=== PATIENT | female | born 1965 ===

== ENCOUNTER → 2017-08-03 | Outpatient (CLI) | payer BC | END | disposition home or self-care (01) | LOC: C.PAPS 09:31 | PROVIDERS: ATTEND Physician Assistant | DX: Z01.411 Encounter for gynecological examination (general) (routine) with abnormal findings (principal); N95.2 Postmenopausal atrophic vaginitis ==

== ENCOUNTER → 2017-10-19 | Outpatient (CLI) | payer BC ==
--- NOTE | 2017-10-20 15:14 | MAMMOGRAPHY REPORT ---
BILATERAL DIGITAL SCREENING MAMMOGRAM TOMOSYNTHESIS WITH CAD: 10/19/2017 CLINICAL HISTORY: Routine screening. Patient has no complaints. TECHNIQUE: Breast tomosynthesis in addition to standard 2D mammography was performed. Current study was also evaluated with a Computer Aided Detection (CAD) system. COMPARISON: Comparison is made to exams dated: 06/18/2015 ultrasound, 07/06/2016 mammogram - [facility], 03/29/2014 mammogram, 03/08/2013 mammogram, and 06/19/2012 mammogram - [facility]. BREAST COMPOSITION: There are scattered areas of fibroglandular density in both breasts. FINDINGS: No suspicious masses, calcifications, or areas of architectural distortion are noted in ei ther breast. There has been no significant interval change compared to prior exams. Small circumscri bed benign-appearing masses are again noted bilaterally, which are considered benign given the multip licity and bilaterality and likely represent small cysts. IMPRESSION: ACR BI-RADS CATEGORY 2: BENIGN There is no mammographic evidence of malignancy. A 1 year screening mammogram is recommended. The pa tient will receive written notification of the results. Approximately 10% of breast cancers are not detected with mammography. A negative mammographic report should not delay biopsy if a clinically suggestive mass is present. Svetlana Lopez M.D. ah/:10/19/2017 16:48:55 [employer]: Angelica GUARDADO(Gamaliel)(M), [facility] letter sent: Normal 1/2 BI-RADS Code: ACR BI-RADS Category 2: Benign
== END | disposition home or self-care (01) ==
LOC: C.MAMM 16:33
PROVIDERS: ATTEND Physician Assistant
DX: Z12.31 Encounter for screening mammogram for malignant neoplasm of breast (principal)

== ENCOUNTER 2019-08-31 11:11 | Inpatient (IN) ==
--- NOTE | 2019-08-09 22:35 | PAT Medication Instructions ---
Medication Instructions Date of Service August 09, 2019 Home Medications [place]-3 Fish Oil 1 cap PO QAM cetirizine 10 mg PO QAM escitalopram oxalate [Lexapro] 10 mg PO QAM hydrochlorothiazide 25 mg PO QAM tvtem-reitp-8-wxu-lfq-swmwct [krill oil] 1 cap PO QAM pantoprazole 40 mg PO QAM potassium chloride 10 meq PO Q2D STOP taking 2 weeks before surgery If surgery is within 2 weeks, stop taking as soon as possible. [place]-3 Fish Oil 1 cap PO QAM vxwkn-jrqoy-0-rcq-jil-ilwrsi [krill oil] 1 cap PO QAM DO NOT take the morning of surgery cetirizine 10 mg PO QAM hydrochlorothiazide 25 mg PO QAM potassium chloride 10 meq PO Q2D Take morning of surgery With a small sip of water, OTHERWISE NOTHING TO EAT OR DRINK AFTER MIDNIGHT: escitalopram oxalate [Lexapro] 10 mg PO QAM pantoprazole 40 mg PO QAM Other Notes If you have any questions please call us at [phone] or [phone] or [phone] or [phone]
--- NOTE | 2019-08-10 11:10 | Anesthesiology Consultation ---
Date of Service August 10, 2019 Assessment & Plan (1) Encounter for pre-operative examination: Chart Review Chart Review: Acceptable Risk for Surgery (pending pre op labs) and Patient seen in Pre Admission Testing Teaching & Discussion Instructed NPO after midnight before surgery, except medications with 15 cc of water. Medication instructions provided according to the PAT guidelines. History Surgery Operation Date: 08/31/19 07:45 Proposed Procedures p L5-S1 Revision Decompression and Fusion, Spinal Cord Monitoring - Luis Livingston DO Height/Weight Height: 5 ft 5 in Weight: 76.6 kg Allergies Allergy/AdvReac Type Severity Reaction Status Date / Time No Known Allergies Allergy Verified 07/24/19 13:19 Medications Home Medications Medication Instructions Recorded Confirmed Last Taken [place]-3 Fish Oil 1 cap PO QAM 04/12/19 07/24/19 04/13/19 05:15 cetirizine 10 mg PO QAM 04/12/19 07/24/19 04/23/19 05:15 escitalopram oxalate [Lexapro] 10 mg PO QAM 07/24/19 07/24/19 Unknown hydrochlorothiazide 25 mg PO QAM 07/24/19 07/24/19 Unknown tdntx-aiimy-4-gle-rcp-cznfhj 1 cap PO QAM 07/24/19 07/24/19 Unknown [krill oil] pantoprazole 40 mg PO QAM 07/24/19 07/24/19 Unknown potassium chloride 10 meq PO Q2D 07/24/19 07/24/19 Unknown Past Medical History Medical History Back pain LLE radiculopathy GERD (gastroesophageal reflux disease) Hyperlipidemia monitoring-NO MEDS CURRENTLY Hypertension Exercise / Class Metabolic Activity II 4-5 Yardwork/Stairs/Walk up hill Past Family History Family History (Updated 07/24/19 @ 13:25 by Pippa Escobar RN) Father Family history of diabetes mellitus FHx: lung cancer Sister Family history of diabetes mellitus Past Surgical History Surgical History History of bilateral tubal ligation History of cholecystectomy History of colonoscopy History of esophagogastroduodenoscopy (EGD) Previous back surgery 04/2019 [facility] Past Anesthesia History No Hx of Anesthesia Complications and No Family Hx of Anesthesia Complications History of PONV No Hx of PONV and No Hx of Motion Sickness Social History Smoking Status: Never smoker Do You Dip or Chew Tobacco: No Hx Alcohol Use: No Alcohol type: hard liquor alcohol intake frequency: holidays/special occasions only Hx Substance Use: No substance use type: does not use Review of Systems Pt denies any recent chest pain, shortness of breath, palpitations, cough, fever or URI. Physical Exam Vital Signs BP: 115/56 P: 60bpm SPO2: 96% RA T: 98.0 F R: 16 ENMT Mouth: no dental restorations, no chipped teeth and no loose teeth Thyromental Distance: > or= 3.5 Finger Breadths (.5) Mallampati Class: II Neck normal visual inspection; neck extension not limited Respiratory normal respiratory effort Auscultation: lungs clear to auscultation bilaterally Cardiovascular Rate/Rhythm: regular rate and regular rhythm Heart Sounds: no murmur Vessels: no carotid bruit Extremities: no edema Testing Electrocardiogram Date: 09/04/18 Findings: + NSR @ (68) Chest X-Ray Date: 09/04/18 Findings: + NAD Stress Test Date: 11/16/16 Type: exercise Exercise ECHO "normal." No inducible ischemia. Exercise EKG negative for ischemia. 98% MPHR. 8.3 METS. LVEF 66%. No significant valvular disease.
[2019-08-10 12:55] LABS: Basophils # (auto) 0.01 K/uL (0-0.2); Basophils % (auto) 0.2 %; Eosinophils # (auto) 0.17 K/uL (0-0.5); Eosinophils % (auto) 3.4 %; Hematocrit (blood only) 41.2 % (37-47); Immature Granulocytes # (auto) 0.01 K/uL (0.00-0.02); Immature Granulocytes % (auto) 0.2 %; Lymphocytes # (auto) 1.61 K/uL (1.2-3.4); Lymphocytes % (auto) 31.9 %; Mean Corpuscular Hemoglobin 29.2 pg (25-34); Mean Platelet Volume 11.2 fL (7.4-10.4); Monocytes % (auto) 9.9 %; Neutrophils # (auto) 2.74 K/uL (1.4-6.5); Neutrophils % (auto) 54.4 %; Platelet Count 201 K/uL (130-400); RDW Coefficient of Variation 13.4 % (11.5-14.5); RDW Standard Deviation 42.4 fL (36.4-46.3); Red Blood Count 4.79 M/uL (4.2-5.4); White Blood Count 5.04 K/uL (4.8-10.8)
[2019-08-10 12:59] LABS: Appearance Urine Clear (Clear); Bacteria Urine Automated Negative (Negative); Bilirubin Urine Negative (Negative); Blood Urine Negative (Negative); Cast Urine Automated 0 /lpf (0-5); Color Urine Yellow; Epithelial Cell Urine Auto 20-30 /lpf (0-5); Glucose Urine UA Negative (Negative); Ketones Urine Negative (Negative); Leukocyte Esterase Urine Trace (Negative); Nitrite Urine Negative (Negative); Protein Urine Negative (Negative); RBC Urine Automated 0-4 /hpf (0-4); Specific Gravity Urine 1.017 (1.000-1.030); Urobilinogen Urine Negative (Negative); pH Urine 6.5 (4.5-7.5)
[2019-08-10 13:03] LABS: BUN Creatinine Ratio 11.8 (10-20); Calcium 9.8 mg/dl (8.5-10.1); Creatinine Clr Calc Pharmacy 79.4 ml/min; Est GFR (African American) 94.1; Est GFR (Non-African American) 81.2; Potassium 3.3 mmol/L (3.5-5.1)
[2019-08-10 13:07] LABS: Partial Thromboplastin Ratio 0.9; Partial Thromboplastin Time 25.3 Seconds (21.0-31.0); Prothrombin Time 9.8 Seconds (9.0-12.0)
[~2019-08-31 11:11] MED LIST: ACETAMINOPHEN 500 MG TAB PO SCH; CEFAZOLIN 1000MG 1,000 MG/7.5 ML SYR IV SCH; CeleBREX 200 MG CAP PO SCH; GABAPENTIN 600 MG DOSE PO SCH; LR 15ML/HR IV SCH
[2019-08-31] MEDS ORDERED: DEXAMETHASONE SOD INJ 4 MG/ML VIAL ONE (12:29)
[2019-08-31] MEDS ORDERED: GLYCOPYRROLATE 0.2 MG/ML VIAL ONE (12:29)
[2019-08-31] MEDS ORDERED: ONDANSETRON INJ 2 MG/ML 2 ML VIAL ONE (12:29)
[2019-08-31] MEDS ORDERED: ROCURONIUM BROMIDE 10 MG/ML 5 ML VIAL ONE (12:29)
[2019-08-31] MEDS ORDERED: PROPOFOL IV EMULSION 10 MG/ML 20 ML VIAL IV ONE (12:29)
[2019-08-31] MEDS ORDERED: fentaNYL citrate 100 MCG/2 ML VIAL ONE ×2 (12:29)
[2019-08-31] MEDS ORDERED: MIDAZOLAM HCL 1 MG/ML 2ML VIAL ONE (12:29)
[2019-08-31] MEDS ORDERED: NEOSTIGMINE METHYLSULFATE 1 MG/ML 10ML VIAL ONE (12:29)
--- NOTE | 2019-08-31 12:38 | History & Physical Bridge Note ---
Date of Service August 31, 2019 History & Physical Bridge Note I have examined the patient, reviewed the History & Physical and in the interval since the performance of the History & Physical I have noted the following changes of clinical significance: no changes noted
--- NOTE | 2019-08-31 12:39 | History & Physical Report ---
Date of Service August 31, 2019 Assessment & Plan (1) Recurrent herniation of lumbar disc: L5-S1 revision decompression fusion Present on Admission?: Yes History of Present Illness Chief Complaint: Back and leg pain Primary Care Provider: Nitza Vale PA-C This is a 54-year-old female known to me that presents with return of back and leg pain. Failing course of nonoperative care for is here for surgical intervention. Allergies Allergy/AdvReac Type Severity Reaction Status Date / Time No Known Allergies Allergy Verified 08/31/19 11:52 Home Medications Home Medications Medication Instructions Recorded Confirmed Type [place]-3 Fish Oil 1 cap PO QAM 04/12/19 08/31/19 History cetirizine 10 mg PO QAM 04/12/19 08/31/19 History escitalopram oxalate [Lexapro] 10 mg PO QAM 07/24/19 08/31/19 History hydrochlorothiazide 25 mg PO QAM 07/24/19 08/31/19 History ewxyh-tvzui-2-wuy-ndb-lygjlw 1 cap PO QAM 07/24/19 08/31/19 History [krill oil] pantoprazole 40 mg PO QAM 07/24/19 08/31/19 History potassium chloride 10 meq PO Q2D 07/24/19 08/31/19 History Past Med/Surg History Medical History Back pain LLE radiculopathy GERD (gastroesophageal reflux disease) Hyperlipidemia monitoring-NO MEDS CURRENTLY Hypertension Surgical History History of bilateral tubal ligation History of cholecystectomy History of colonoscopy History of esophagogastroduodenoscopy (EGD) Previous back surgery 04/2019 [facility] Family History (Updated 07/24/19 @ 13:25 by Pippa Escobar RN) Father Family history of diabetes mellitus FHx: lung cancer Sister Family history of diabetes mellitus Social History Preferred Language: Latvian Communication Ability: Effective Infrastructure Director Required: No Beliefs That Will Affect Care: None Current Living Situation: Spouse Other Information That Helps Us Care for You: No Feels Safe at Home: Yes Safety Concerns: Feels Safe At This Time Smoking Status: Never smoker Do You Dip or Chew Tobacco: No ; Second Hand Exposure: No ; Hx Alcohol Use: No Hx Substance Use: No Physical Exam Physical Exam: Patient is alert and oriented neurologically intact. Results & Data Vital Signs (Past 12 Hours) Vital Signs Temp Pulse Resp BP Pulse Ox 08/31/19 11:54 36.8 C 61 18 157/97 H 99
[2019-08-31] MEDS ORDERED: BACITRACIN INJ 50,000 UNIT VIAL ONE (13:01)
[2019-08-31] MEDS ORDERED: BUPIVACAINE/EPINEPHRINE 0.5% MPF 1:200,000 10 ML VIAL ONE (13:01)
[2019-08-31] MEDS ORDERED: HYDROmorphone INJ 2 MG/ML SYR/VIAL ONE (13:49)
[2019-08-31] MEDS ORDERED: FLOSEAL HEMOSTATIC MATRIX 10ML TOP ONE (14:52)
--- NOTE | 2019-08-31 14:56 | Operative Report ---
Post Operative Report Pre & Post Diagnosis Operation Date: 08/31/19 13:05 Pre-Op Diagnosis: LUMBAR INTERVERTEBRAL DISC DISPLACEMENT Post-Op Diagnosis: LUMBAR INTERVERTEBRAL DISC DISPLACEMENT I identified the patient and participated in the time-out.: Yes Procedure Operation Date: 08/31/19 13:05 Actual Procedures #1 revision decompression with bilateral medial facetectomy foraminotomies L5- S1. #2 posterior spinal fusion L5-S1. #3 placement posterior instrumentation L5-S1. #4 interbody fusion L5-S1. #5 placed a peek cage 11 x 22 mm at L5-S1. #6 placement locally harvested morselized autograft in the posterior lateral gutters. #7 placement infuse collagen sponge, master graft in the posterior gutters and ostial amp and interbody space. Surgeon Luis Livingston, Dog Hair Clipper Kavin Portillo Estimated Blood Loss 100 Findings Consistent with Post-Op Diagnosis Specimens None Description of Procedure Patient was met with preoperatively case discussed all questions were addressed. Then put patient was taken back to the operative suite underwent intubation placed in the prone position the Nic table on top of the [place] frame. All bony prominences well-padded eyes inspected to ensure no external pressure placed upon the peer at this point the lumbar spine was prepped and draped in normal sterile fashion. Sharp dissection with the assistance pericardial form down to and exposing the remaining lamina and transverse processes of L5 and the sacral ala bilaterally. From caudal cephalad fashion a revision complete laminectomy of L5 was performed including medial facetectomies and foraminotomies. Pedicle screws were then placed in L5 and S1 levels bilaterally with assistance of fluoroscopy the purposes cristobal placed. By way of a transforaminal approach on the left complete discectomy was performed endplates curetted to subcortical bleeding bone and a 11 x 22 mm peek cage filled with osteo-bone graft tapped in position. The rods were then compressed locked into final position bilaterally. The transverse processes of L5 and sacral ala burred to subcortical bleeding bone. Infuse collagen sponge master graft local autograft was placed in the posterior gutters. 15 round UNA drain inserted. Incision was then closed with 1 Vicryl in the fascia 2-0 Vicryl subcutaneously and 4 Monocryl for final skin closure. Steri-Strip sterile dressings placed. Patient will continue to PACU stable condition. Please note my coworker present that the entire procedure involved the patient positioning complex portions of the surgery and final skin closure. Lastly spinal cord monitoring was utilized that the procedure no changes noted. I attest to the content of the Intraoperative Record and any orders documented therein. Any exceptions are noted below.
--- NOTE | 2019-08-31 14:59 | Fluoroscopy Report ---
FL lumbar spine 2-3V CLINICAL HISTORY: 54 years-old Female presenting with L5-S1 REVISION DECOMPRESSION AND FUSION. TECHNIQUE: 2 fluoroscopic image(s) recorded as part of an intraoperative procedure. COMPARISON: 04/24/2019. FINDINGS/IMPRESSION: Transpedicular screw and cristobal fixation of L5-S1 with interbody spacer now evident with L5 laminectomy. No hardware breakage is apparent. Normal anatomic alignment. Please see surgical report for further details. Fluoroscopy dosage (mGy): 17.84. Fluoroscopy time: 18.3 seconds. Number or time of high level fluoroscopy (HLF), digital spot, or digital subtraction images: 0. ACT 112: Negative or not required by law. Electronically signed by: Kelvin Cooley M.D. 08/31/2019 2:58 PM
[2019-08-31] MEDS ORDERED: ePHEDrine sulfate 50 MG/ML AMP IV PRN (15:44)
[2019-08-31] MEDS ORDERED: ATROPINE SULFATE 0.1 MG/ML 10ML SYR IV PRN (15:44)
[2019-08-31] MEDS ORDERED: fentaNYL citrate 100 MCG/2 ML VIAL IV PRN (15:44)
[2019-08-31] MEDS ORDERED: HYDROmorphone INJ 2 MG/ML SYR/VIAL IV PRN (15:44)
--- NOTE | 2019-08-31 16:01 | Anesthesiology Progress Note ---
Date of Service August 31, 2019 Anesthesia Post Procedure Vital Signs Vital Signs: Temp Pulse Pulse Resp BP Pulse Ox 08/31/19 15:45 93 H 13 133/73 96 08/31/19 15:35 105 H 18 137/76 95 08/31/19 15:26 36.3 C L 100 H 16 142/81 H 97 08/31/19 11:54 36.8 C 61 18 157/97 H 99 Transfer of Care Handoff Completed per policy Notes Mental Status: alert / awake / arousable and participated in evaluation Patient Amnestic to Procedure: Yes Nausea / Vomiting: adequately controlled Pain: adequately controlled Airway Patency, RR, SpO2: stable & adequate BP & HR: stable & adequate Hydration State: stable & adequate Anesthetic Complications: no major complications apparent
[2019-08-31] MEDS ORDERED: LORazepam 0.5 MG TAB PO PRN (16:47)
[2019-08-31] MEDS ORDERED: MAGNESIUM HYDROXIDE SUSP 30 ML UDC PO PRN (16:47)
[2019-08-31] MEDS ORDERED: HYDROmorphone INJ 0.5 MG/0.5 ML SYR IV PRN (16:47)
[2019-08-31] MEDS ORDERED: NALOXONE HCL 0.4 MG/1 ML VIAL/CARP IV PRN (16:47)
[2019-08-31] MEDS ORDERED: METOCLOPRAMIDE HCL INJ 5 MG/ML 2 ML VIAL IV PRN (16:47)
[2019-08-31] MEDS ORDERED: bisacodyL 10 MG SUPP PR PRN (16:47)
[2019-08-31] MEDS ORDERED: HYDROmorphone INJ 1 MG/ML SYRINGE IV PRN (16:47)
[2019-08-31] MEDS ORDERED: FAMOTIDINE 20 MG TAB PO PRN (16:47)
[2019-08-31] MEDS ORDERED: DO NOT ADMINISTER PNEUMOCOCCAL VACCINE PRN (16:47)
[2019-08-31] MEDS ORDERED: PROMETHAZINE HCL 12.5 MG in SODIUM CHLORIDE 0.9% 50 ML IV PRN (16:47)
[2019-08-31] MEDS ORDERED: SOD PHOSPHATE/SOD BIPHOSPHATE ENEMA 132 ML BTL PR PRN (16:47)
[2019-08-31] MEDS ORDERED: OXYCODONE HCL IR 5 MG TAB (IMMEDIATE RELEASE) PO PRN (16:47)
[2019-08-31] MEDS ORDERED: ONDANSETRON 4 MG OD TAB PO PRN (16:47)
[2019-08-31] MEDS ORDERED: ACETAMINOPHEN 1,000 MG/100 ML VIAL IV PRN (16:47)
[2019-08-31] MEDS ORDERED: TRAMADOL HCL 50 MG TABLET PO PRN (16:47)
[2019-08-31] MEDS ORDERED: LORazepam 0.5 MG/1 ML VIAL IV PRN (16:47)
[2019-08-31] MEDS ORDERED: DO NOT ADMINISTER FLU VACCINE PRN (16:47)
[2019-08-31] MEDS ORDERED: ALUMINUM/MAGNESIUM SUSP 30 ML UDC PO PRN (16:47)
[2019-08-31] MEDS ORDERED: ONDANSETRON INJ 2 MG/ML 2 ML VIAL IV PRN (16:47)
[2019-08-31] MEDS: LACTATED RINGER'S 1,000 ML IV SCH (17:01)
[2019-08-31] MEDS: DOCUSATE SODIUM/SENNA 50/8.6MG TAB PO SCH (20:41)
[2019-08-31] MEDS: CEFAZOLIN 1000MG 1,000 MG/7.5 ML SYR IV SCH (21:31)
[2019-09-01] MEDS: LACTATED RINGER'S 1,000 ML IV SCH (00:14)
[2019-09-01] MEDS: CEFAZOLIN 1000MG 1,000 MG/7.5 ML SYR IV SCH (05:34)
[2019-09-01] MEDS: POLYETHYLENE (MIRALAX) 17 GM PACK PO SCH ×2 (05:34→12:41)
[2019-09-01 05:50] LABS: Hematocrit (blood only) 35.8 % (37-47); Hemoglobin 12.1 g/dL (12.0-16.0); Immature Granulocytes # (auto) 0.02 K/uL (0.00-0.02); Immature Granulocytes % (auto) 0.2 %; Lymphocytes # (auto) 0.68 K/uL (1.2-3.4); Lymphocytes % (auto) 7.5 %; Mean Corpuscular Hemoglobin 29.2 pg (25-34); Mean Corpuscular Hgb Conc 33.8 g/dL (32-36); Mean Corpuscular Volume 86.5 fL (80-100); Mean Platelet Volume 10.5 fL (7.4-10.4); Monocytes # (auto) 0.51 K/uL (0.11-0.59); Monocytes % (auto) 5.6 %; Neutrophils # (auto) 7.82 K/uL (1.4-6.5); Neutrophils % (auto) 86.7 %; Platelet Count 197 K/uL (130-400); RDW Coefficient of Variation 13.5 % (11.5-14.5); RDW Standard Deviation 42.6 fL (36.4-46.3); Red Blood Count 4.14 M/uL (4.2-5.4); White Blood Count 9.03 K/uL (4.8-10.8)
[2019-09-01 06:18] LABS: BUN Creatinine Ratio 11.8 (10-20); Calcium 9.1 mg/dl (8.5-10.1); Creatinine Clr Calc Pharmacy 92.5 ml/min; Est GFR (African American) 110.4; Est GFR (Non-African American) 95.2; Potassium 3.9 mmol/L (3.5-5.1)
[2019-09-01] MEDS: hydroCHLOROthiazide 25 MG TAB PO SCH (08:54)
[2019-09-01] MEDS: PANTOprazole 40 MG TAB PO SCH (08:55)
[2019-09-01] MEDS: ESCITALOPRAM OXALATE 10 MG TAB PO SCH (08:55)
[2019-09-01] MEDS: CETIRIZINE HCL 10 MG TABLET PO SCH (08:55)
[2019-09-01] MEDS ORDERED: POTASSIUM CHLORIDE 10 MEQ TABCR PO SCH (09:00)
--- NOTE | 2019-09-01 10:47 | Orthopedic Progress Note ---
Date of Service September 01, 2019 Assessment & Plan (1) Recurrent herniation of lumbar disc: At this time we will continue physical therapy monitor her UNA output hopefully discharge home the next few days. Present on Admission?: Yes Subjective Back pain controlled leg symptoms markedly improved. Physical Exam Physical Exam: Patient is good strength testing appears comfortable. Results & Data Vital Signs (Past 12 Hours) Vital Signs Temp Pulse Pulse Resp BP Pulse Ox 09/01/19 07:20 36.6 C 85 18 128/75 92 09/01/19 04:15 36.7 C 87 16 130/70 93 08/31/19 23:25 36.4 C L 69 16 158/80 H 95
[2019-09-01] MEDS: ACETAMINOPHEN 500 MG TAB PO PRN (13:59)
--- NOTE | 2019-09-01 14:27 | Anesthesiology Progress Note ---
Date of Service September 01, 2019 Anesthesia Post Procedure Vital Signs Vital Signs: Temp Pulse Pulse Resp BP BP Pulse Ox 09/01/19 07:20 36.6 C 85 18 128/75 92 09/01/19 04:15 36.7 C 87 16 130/70 93 08/31/19 23:25 36.4 C L 69 16 158/80 H 95 08/31/19 19:17 36.3 C L 98 H 17 136/78 98 08/31/19 18:03 67 16 118/76 95 08/31/19 17:31 96 08/31/19 17:16 36.4 C L 86 18 124/72 98 08/31/19 16:53 36.4 C L 89 18 118/76 96 08/31/19 16:05 36.4 C L 90 12 141/73 H 95 08/31/19 15:55 36.4 C L 90 7 L 137/76 97 08/31/19 15:45 93 H 13 133/73 96 08/31/19 15:35 105 H 18 137/76 95 08/31/19 15:26 36.3 C L 100 H 16 142/81 H 97 Pain Intensity Bilateral Back: Pain Intensity: 2 Notes Mental Status: alert / awake / arousable and participated in evaluation Patient Amnestic to Procedure: Yes Nausea / Vomiting: adequately controlled Pain: adequately controlled Airway Patency, RR, SpO2: stable & adequate BP & HR: stable & adequate Hydration State: stable & adequate Anesthetic Complications: no major complications apparent
[2019-09-01 15:15] VITALS: TEMP 98.2
[2019-09-01] MEDS: DOCUSATE SODIUM/SENNA 50/8.6MG TAB PO SCH (20:57)
[2019-09-02 06:05] VITALS: PULSE 65; O2SAT 97
[2019-09-02] MEDS: hydroCHLOROthiazide 25 MG TAB PO SCH (07:42)
[2019-09-02] MEDS: CETIRIZINE HCL 10 MG TABLET PO SCH (07:43)
[2019-09-02] MEDS: PANTOprazole 40 MG TAB PO SCH (07:43)
[2019-09-02] MEDS: ESCITALOPRAM OXALATE 10 MG TAB PO SCH (07:43)
--- NOTE | 2019-09-02 10:49 | Discharge Summary ---
Date of Service September 02, 2019 Admission HPI Per Admitting Provider This is a 54-year-old female known to me that presents with return of back and leg pain. Failing course of nonoperative care for is here for surgical intervention. Principal Diagnosis Lumbar spinal stenosis with radiculopathy Discharge Data Allergies Allergy/AdvReac Type Severity Reaction Status Date / Time No Known Allergies Allergy Verified 08/31/19 11:52 Consultations 08/31/19 16:47 Consult Case Management - Discharge Planning Routine Procedures Performed Operation Date: 08/31/19 13:05 Actual Procedures p L5-S1 Revision Decompression and Fusion with Interbody, Spinal Cord Monitoring(Not Applicable) - Luis Livingston DO Ordered Studies 08/31/19 13:05 [place] fluoroscopy <1hr Routine [place] lumbar spine 2-3V Routine Hospital Course (1) Recurrent herniation of lumbar disc: Patient with lumbar decompression fusion tolerated well went to the orthopedic for postoperative. Postop day 1 he was up and ambulating appropriately. Pain well controlled. Progressed the postop day #2. Pain was well controlled strength intact UNA drain decreasing probably. Subsequently discharged home. Discharge orders instructions from the chart for further view. Total Time Total Time Spent Total Time Spent (In Minutes): 20 minutes Discharge Plan Discharge Items Patient Disposition: Home - Self-Care Reason For Visit: LUMBAR INTERVERTEBRAL DISC DISPLACEMENT Discharge Diagnosis: Recurrent disc herniation L5-S1 Activity: As commented below Non-emergency contact: Primary Care Provider Call non-emergency contact if: you have any medication questions Follow-up/Referrals: Nitza Vale PA-C [Primary Care Provider] - Diet: Regular Addtl Attending Provider Instructions: ACTIVITY RECOMMENDATIONS: SELF CARE INSTRUCTIONS AFTER THORACIC/LUMBAR FUSIONS 1. You may walk to your tolerance. It is good exercise for your legs and back. Expect some back and intermittent leg aches and pains. 2. You may perform "counter-top" level activities (make a sandwich, seferino with a project, etc.). 3. No bending or lifting of more than 10 pounds or back twisting of any nature (roll like a log when turning in bed). 4. You may ride in a car for 20-30 minutes at a time. No driving until after your first visit with your doctor. 5. Frequent changes of position and restricting sitting to 30 minutes at a time will help limit the amount of back spasms and stiffness you may experience. 6. You may discontinue the use of ambulatory aids (cane, crutches, etc.) once your strength and confidence allow. 7. You may drafting layout man the shower and let water strike your incision when you arrive home at least once daily. Do not take a tub bath, sit in a hot tub or go into a swimming pool until after your first recheck in the office. SPECIAL CARE INSTRUCTIONS: VERY IMPORTANT TO READ AND REVIEW A. Your surgical incision has been closed with a cosmetic suture under the skin that will dissolve in about 6 weeks. In 14 days, you can use a pair of clean scissors and cut the suture that is left outside of the skin at the ends of your incision. 1. The small skin tapes can be removed 7 days after surgery if they have not fallen off by that point. 2. You may keep the wound open to air as much as possible to promote healing after post-op day number 5 unless told otherwise by your doctor. 3. If you think the wound looks like it is becoming infected (redness or worsening drainage) and/or you are experiencing fever, chill or worsening back pain and muscle spasms, contact the office so that we may evaluate you as soon as possible. B. Complications are uncommon, but please contact us if you have any signs or symptoms of: 1. wound infection (fever higher than 102.5 degrees F, redness, separation of wound, drainage, or increasing pain from the incision) 2. blood clots in legs (pain, swelling, redness and warmth in legs) 3. urinary tract infection (fever higher than 102.5 degrees F, burning upon urination or increased frequency of urination) 4. nerve problems (inability to walk on your toes or heels, numbness, loss of bowel or bladder control) 5. any other symptoms that concern you C. Please call the office at if you have any concerns or questions about your operation or recovery. D. No smoking! Smoking drastically decreases the chance of a solid fusion. E. Do not take any anti-inflammatory medications (Indocin, Advil, Motrin, Aspirin, Naprosyn, etc.) as these may inhibit the chance of a solid fusion. Tylenol is okay to take for pain. MANAGING PAIN AFTER SPINAL SURGERY 1. Narcotic medication is intended for short-term use and will be provided for surgical pain. Surgical pain usually lasts for a period of 4-6 weeks. Narcotic medication includes Percocet, Vicodin, Darvocet, Tylenol #3 or Lortab. 2. Longer-term pain is more appropriately treated with non-narcotic medication such as Tylenol ES. 3. Muscle spasm is not appropriately treated with narcotics. Muscle relaxers such as Soma, Flexeril or Skelaxin can be used along with Tylenol ES. 4. Remember that we all live with some "aches and pains". This is not unusual or uncommon after an injury or as we get older. a. Back pain is expected and may include muscle spasms for 4 to 6 weeks after surgery. The pain should gradually improve. If the pain worsens for no apparent reason, please contact the office. b. Intermittent leg pain may also be experienced and should not be concerned about unless it worsens for no apparent reason. If so, please contact the office. 5. We will provide appropriate medication within the normal guidelines of their prescribed use. We will also be very cautious and aware of potential abuse and extended duration of patients' medication needs. a. Pain medications are for your comfort and to assist with sleep and rest so that the tissue can heal. They are not provided in order to return to normal activity and should not be used through the day. To do so or worsening pain at night can result from ongoing tissue damage and development of tolerance to the prescribed medicine. 6. Please allow 2-3 days to process refills. Prescriptions will not be mailed but must be picked up at the office. FOLLOW UP VISIT: Keep your scheduled follow-up appointment. Any questions, please call the office at . Pending Studies at Discharge: No Stand-Alone Forms: My [facility], Smoking Cessation Medications and DC Order Prescriptions: New tramadol 50 mg tablet 50 mg PO Q6H PRN (Reason: pain, moderate) Qty: 20 RF: 0 oxycodone 5 mg tablet 5 mg PO Q6H PRN (Reason: pain, severe) Qty: 20 RF: 0 Continued potassium chloride 10 mEq Tablet Extended Release 10 meq PO Q2D RF: 0 pantoprazole 40 mg Tablet,Delayed Release (Dr/Ec) 40 mg PO QAM RF: 0 hydrochlorothiazide 25 mg Tablet 25 mg PO QAM RF: 0 escitalopram oxalate [Lexapro] 10 mg Tablet 10 mg PO QAM RF: 0 yyrsr-ammew-0-cmq-yei-kvndqi [krill oil] 335-36-54-50 mg Capsule 1 cap PO QAM RF: 0 cetirizine 10 mg Tablet 10 mg PO QAM RF: 0 [place]-3 Fish Oil 300-1,000 mg Capsule 1 cap PO QAM RF: 0 Discharge Orders: Discharge Order (Routine); Ordered 09/02/19 Ordered By: Luis Livingston Admission Data Admit Date/Time: 08/31/19 15:22 Attending Provider: Luis Livingston Admit Provider: Luis Livingston Primary Care Provider: Nitza Vale
[2019-09-02] MEDS: ACETAMINOPHEN 500 MG TAB PO PRN (11:24)
[2019-09-02 11:30] VITALS: BP 141/73
== END 2019-09-02 11:54 | disposition home or self-care (01) | DRG 455 ==
LOC: ASU 11:11 → 3E 15:22